=== PATIENT | male | born 1945 | race Caucasian/White ===

== ENCOUNTER → 2018-10-15 | Outpatient (CLI) | payer MEDICARE ==
[2018-10-15 10:07] LABS: Basophils % (A) 1 %; Eosinophils # (A) 0.1 k/uL (0-0.7); Eosinophils % (A) 2 %; HCT 45.5 % (39.0-53.0); HGB 14.6 gm/dL (13.0-17.5); Lymphocytes % (A) 24 %; MCH 30.8 pg (25.0-35.0); MCHC 32.2 g/dL (31.0-37.0); MCV 95.6 fL (80.0-100.0); Mean Platelet Volume 7.6; Monocytes # (A) 0.2 k/uL (0-1.0); Monocytes % (A) 5 %; Neutrophils # (A) 2.6 k/uL (1.3-7.7); Neutrophils % (A) 64 %; Platelet Count 188 k/uL (150-450); RBC 4.75 m/uL (4.30-5.90); RDW 13.7 % (11.5-15.5); WBC 4.1 k/uL (3.8-10.6)
[2018-10-15 16:36] LABS: Albumin 4.2 g/dL (3.80-4.90); Albumin/Globulin Ratio 2.8 (1.60-3.17); Anion Gap 5.5 mmol/L (4.00-12.00); Calcium 8.8 mg/dL (8.7-10.3); Carbon Dioxide 26.5 mmol/L (21.6-31.8); Globulin 1.5 g/dL (1.6-3.3); Potassium 4.4 mmol/L (3.5-5.5); Total Bilirubin 0.9 mg/dL (0.2-1.2); Total Protein 5.7 g/dL (6.2-8.2)
[2018-10-15 16:45] LABS: T4, Free (Free Thyroxine) 1.1 ng/dL (0.80-1.80)
== END ==
LOC: LABWHC1 09:02
PROVIDERS: ATTEND Family Medicine
DX: I10 Essential (primary) hypertension (principal); E78.5 Hyperlipidemia, unspecified; H53.2 Diplopia; R55 Syncope and collapse
CPT/HCPCS: 36415; 80053; 80061; 84439; 84443; 85025; 85379

== ENCOUNTER → 2018-11-01 | Outpatient (CLI) | payer MEDICARE ==
--- NOTE | 2018-11-02 10:15 | US ---
EXAMINATION TYPE: US carotid duplex BILAT DATE OF EXAM: 11/01/2018 COMPARISON: US 2013 CLINICAL HISTORY: R55 syncope H53.2 Diplopia. Syncope, diplopia per order. Hyperlipidemia. EXAM MEASUREMENTS: RIGHT: Peak Systolic Velocity (PSV) cm/sec ----- Right CCA: 76.7 ----- Right ICA: 75.3 ----- Right ECA: 89.1 ICA/CCA ratio: 1.0 RIGHT: End Diastole cm/sec ----- Right CCA: 23.8 ----- Right ICA: 22.3 ----- Right ECA: 16.4 LEFT: Peak Systolic Velocity (PSV) cm/sec ----- Left CCA: 109.4 ----- Left ICA: 74.5 ----- Left ECA: 60.2 ICA/CCA ratio: 0.7 LEFT: End Diastole cm/sec ----- Left CCA: 24.8 ----- Left ICA: 17.2 ----- Left ECA: 10.6 VERTEBRALS (direction of flow): Right Vertebral: Antegrade Left Vertebral: Antegrade Rhythm: Arrhythmia Minimal plaque seen bilateral bifurcations. No elevated velocities obtained. No significant stenosis seen. Arrhythmia. IMPRESSION: 1. Atheromatous plaquing. No significant flow-limiting stenosis. Criteria for Assigning % of Stenosis / Diameter reduction (Estimation based on the indirect measurements of the internal carotid artery velocities (ICA PSV). 1. Normal (no stenosis)=ICA PSV < 125 cm/s: ratio < 2.0: ICA EDV<40 cm/s. 2. Less than 50% stenosis=ICA PSV < 125 cm/s: ratio < 2.0: ICA EDV<40 cm/s. 3. 50 to 69% stenosis=ICA PSV of 125 to 230 cm/s: ration 2.0 ? 4.0: ICA EDV 40-100 cm/s. 4. Greater than 70% stenosis to near occlusion= ICA PSV > 230 cm/s: ratio > 4.0: ICA EDV > 100 cm/s. 5. Near occlusion= ICA PSV velocities may be low or undetectable: variable ratio and ICA EDV. 6. Total occlusion=unable to detect flow.
== END | disposition home or self-care (01) ==
LOC: RADUSWWP 16:35
PROVIDERS: ATTEND Family Medicine
DX: I70.90 Unspecified atherosclerosis (principal)
CPT/HCPCS: 93880

== ENCOUNTER 2021-02-02 08:26 | Day surgery (SDC) | payer MEDICARE, OTHER ==
[2021-02-02 08:54] VITALS: RESP 16; TEMP 97.3
[2021-02-02] MEDS ORDERED: LACTATED RINGERS 1,000 ML IV ONE (09:04)
[2021-02-02] MEDS ORDERED: LIDOCAINE 1% (10MG/ML) FOR IV START INTRADERMA ONE (09:04)
[2021-02-02] MEDS ORDERED: GLYCOPYRROLATE 0.2 MG/ML 2 ML VIAL ONE (09:22)
[2021-02-02] MEDS ORDERED: PROPOFOL 10 MG/ML 20 ML VIAL IV ONE (09:22)
--- NOTE | 2021-02-02 09:26 | P.GSHP ---
History of Present Illness H&P Date: 02/02/21 Chief Complaint: Rectal bleeding Patient is here today for colonoscopy. Last colonoscopy 15 years ago or so. Over the last month has had 2 episodes of bright red blood per rectum. No abdominal pain. No rectal pain. No family history of colon cancer. Past Medical History Past Medical History: Hyperlipidemia History of Any Multi-Drug Resistant Organisms: None Reported Additional Past Surgical History / Comment(s): BILATERAL KNEE SCOPE. Past Anesthesia/Blood Transfusion Reactions: No Reported Reaction Additional Past Anesthesia/Blood Transfusion Reaction / Comment(s): HAS HAD NO GENERAL ANESTHESIA. Past Psychological History: No Psychological Hx Reported Smoking Status: Former smoker Past Alcohol Use History: Occasional Additional Past Alcohol Use History / Comment(s): QUIT 3O YRS, LESS THAN .5 PPD Past Drug Use History: None Reported Medications and Allergies Home Medications Medication Instructions Recorded Confirmed Type Ibuprofen [Advil] 200 - 400 mg PO Q6H PRN 01/28/21 02/02/21 History Simvastatin 40 mg PO QAM 01/28/21 02/02/21 History Allergies Allergy/AdvReac Type Severity Reaction Status Date / Time No Known Allergies Allergy Verified 02/02/21 08:49 Surgical - Exam Vital Signs Temp Pulse Resp BP Pulse Ox 97.3 F L 52 L 16 165/89 97 02/02/21 08:52 02/02/21 08:52 02/02/21 08:52 02/02/21 08:52 02/02/21 08:52 Physical exam: General: Well-developed, well-nourished HEENT: Normocephalic, sclerae nonicteric Abdomen: Nontender, nondistended Extremities: No edema Neuro: Alert and oriented Assessment and Plan (1) Rectal bleeding Narrative/Plan: Will proceed with colonoscopy Current Visit: Yes Status: Acute Code(s): K62.5 - HEMORRHAGE OF ANUS AND RECTUM SNOMED Code(s): 64108470
--- NOTE | 2021-02-02 10:05 | P.PCN ---
Date of Procedure: 02/02/21 Procedure(s) Performed: PREOPERATIVE DIAGNOSIS: Rectal bleeding POSTOPERATIVE DIAGNOSIS: Multiple polyps, sigmoid mass, diverticulosis PROCEDURE: Colonoscopy with snare polypectomy, biopsy, spot injection, clip placement ANESTHESIA: MAC SURGEON: Colby Galvez M.D. SPECIMENS: Polyps, mass ENDOSCOPIC PROCEDURE: The patient was placed on the endoscopy table in the left decubitus position. The Olympus colonoscope was inserted into the anus and passed under direct visualization to the base of the cecum. The appendiceal orifice was visualized. From that point the scope was slowly withdrawn inspecting all surfaces carefully. There were no neoplastic inflammatory or polypoid lesions throughout the cecum. In the ascending colon a pedunculated polyp was removed using the snare with cautery technique. At the polypectomy site there was a small amount of bleeding seen. A clip was used to control this bleeding. No further bleeding was seen. In the transverse colon 2 polyps are seen removed using the snare with cautery technique. In the descending colon 2 polyps are seen and removed using the snare with cautery technique. In the sigmoid colon between 30 and 35 cm there was a neoplastic mass that was friable. This involved 50% of the circumference. This was not obstructing. Multiple biopsies were taken. Spot injection took place proximal and distal to the mass. In the rectum another 1.5-2 cm evacuated polyp was removed using the snare with cautery technique. The remainder of the rectum appeared normal. The patient had mild diverticulosis scattered throughout the colon. Digital rectal examination was normal. The patient was taken to the recovery room in stable condition per anesthesia guidelines. RECOMMENDATIONS: Await biopsy results. CT abdomen and pelvis. Follow-up office 1 week.
[2021-02-02 10:23] VITALS: BP 122/84; PULSE 57
== END 2021-02-02 10:54 | disposition home or self-care (01) ==
LOC: ORWHC2ENDO 08:26
PROVIDERS: ATTEND Surgery
DX: D12.2 Benign neoplasm of ascending colon (principal); D12.3 Benign neoplasm of transverse colon; D12.4 Benign neoplasm of descending colon; D12.5 Benign neoplasm of sigmoid colon; E78.5 Hyperlipidemia, unspecified; Z79.1 Long term (current) use of non-steroidal anti-inflammatories (NSAID); Z87.891 Personal history of nicotine dependence
CPT/HCPCS: 45382; 45380; 45381; 45385; 88305; J2704

== ENCOUNTER → 2021-02-10 | Outpatient (CLI) | payer MEDICARE, OTHER ==
[2021-02-10 14:59] LABS: African American GFR (CKD) >90 (>60 ml/min/1.73 sqM); Blood Urea Nitrogen 15 mg/dL (9-20); Non-African American GFR(CKD) 80 (>60 ml/min/1.73 sqM)
[2021-02-10 16:11] LABS: HCT 44.2 % (39.0-53.0); HGB 15.1 gm/dL (13.0-17.5); MCH 32.9 pg (25.0-35.0); MCHC 34.2 g/dL (31.0-37.0); MCV 96.2 fL (80.0-100.0); Mean Platelet Volume 7.9; Platelet Count 180 k/uL (150-450); RBC 4.59 m/uL (4.30-5.90); RDW 14.1 % (11.5-15.5); WBC 6.4 k/uL (3.8-10.6)
--- NOTE | 2021-02-10 16:22 | CT ---
EXAMINATION TYPE: CT abdomen pelvis w con DATE OF EXAM: 02/10/2021 COMPARISON: 03/12/2013 INDICATION: polys, colon mass DLP: 924.3 mGycm, Automated exposure control for dose reduction was used. CONTRAST: 100 mL of Isovue 300. Study performed with Oral Contrast TECHNIQUE: Axial images were obtained from above the diaphragm to the pubic rami in the axial plane a t 5 mm thick sections. Reconstructed images are reviewed on the computer in the coronal plane. FINDINGS: Limited CT sections are obtained the lung bases. The lung bases are clear. CT ABDOMEN: Liver: Normal Spleen: Normal Pancreas: Normal Adrenal glands: The adrenal glands are normal. Gallbladder: Normal Kidneys: No masses are evident. No hydronephrosis is present. No cysts are present. There is calci fication without obstruction at the inferior pole right kidney. In the inferior pole right renal cyst is present measuring 1.7 cm and 15 Hounsfield units. Aorta: Normal Inferior vena cava: Normal. CT PELVIS: Fecal debris is within the colon. There is thickening of the proximal sigmoid colon. Underlying neopl asm is not excluded at that level. There may be a radiopaque foreign body within the proximal hepatic flexure. Linear opacity is present. Small bowel loops appear unremarkable. There are loops of bowel which are incompletely distended or lack oral contrast limiting their evaluation. Appendix: Normal as visualized. Urinary bladder: Normal. Genitourinary structures: Prostate is prominent. Osseous structures: No suspicious lytic or sclerotic lesions. IMPRESSIONS: 1. Thickening of the proximal sigmoid colon. Additional workup for neoplasm is recommended. 2. Fecal debris within the colon. Polyps may not be visualized on this noncontrast filled colon CT st [facility]. 3. Possible radiopaque foreign body proximal hepatic flexure. 4. Right renal cyst and nonobstructing renal stone
[2021-02-10 16:42] LABS: ALT 14 U/L (4-49); AST 27 U/L (17-59); African American GFR (CKD) >90 (>60 ml/min/1.73 sqM); Albumin 4.3 g/dL (3.5-5.0); Alkaline Phosphatase 81 U/L (38-126); Anion Gap 9 mmol/L; Blood Urea Nitrogen 15 mg/dL (9-20); Calcium 9.4 mg/dL (8.4-10.2); Carbon Dioxide 25 mmol/L (22-30); Chloride 103 mmol/L (98-107); Glucose 85 mg/dL (74-99); Non-African American GFR(CKD) 82 (>60 ml/min/1.73 sqM); Potassium 4.1 mmol/L (3.5-5.1); Sodium 137 mmol/L (137-145); Total Protein 6.6 g/dL (6.3-8.2)
== END | disposition home or self-care (01) ==
LOC: RADCTMAIN 14:25
PROVIDERS: ATTEND Surgery
DX: N28.1 Cyst of kidney, acquired (principal); N20.0 Calculus of kidney; K63.9 Disease of intestine, unspecified
CPT/HCPCS: 80053; 82378; 82565; 84520; 85027; 74177; 36415; Q9967

== ENCOUNTER → 2021-02-22 | Outpatient (CLI) | payer MEDICARE, OTHER ==
[2021-02-22 14:07] LABS: HCT 45.9 % (39.0-53.0); HGB 15.6 gm/dL (13.0-17.5); MCH 32.5 pg (25.0-35.0); MCHC 33.9 g/dL (31.0-37.0); MCV 95.9 fL (80.0-100.0); Mean Platelet Volume 7.9; Platelet Count 180 k/uL (150-450); RBC 4.79 m/uL (4.30-5.90); RDW 13.2 % (11.5-15.5); WBC 6.2 k/uL (3.8-10.6)
[2021-02-22 14:24] LABS: Potassium 3.9 mmol/L (3.5-5.1)
== END | disposition home or self-care (01) ==
LOC: LABPAT 13:20
PROVIDERS: ATTEND Surgery
DX: Z01.812 Encounter for preprocedural laboratory examination (principal); Z01.810 Encounter for preprocedural cardiovascular examination; C18.9 Malignant neoplasm of colon, unspecified
CPT/HCPCS: 36415; 80051; 85027; 93005

== ENCOUNTER 2021-02-26 11:10 | Inpatient (IN) | payer MEDICARE, OTHER ==
[2021-02-22 11:57] VITALS: BMI 24.5
[~2021-02-26 11:10] MED LIST: ACETAMINOPHEN TAB 500 MG TAB PO PRN; ALVIMOPAN 12 MG CAPSULE PO PRN; DEXAMETHASONE SOD PHOSPHATE 4 MG/ML 1 ML VIAL IV ONE; HEPARIN SODIUM,PORCINE/PF 5,000 UNIT/0.5 ML SYRINGE SQ PRN; HYDROmorphone 0.5 MG/0.5 ML SYRINGE IVP PRN; LIDOCAINE 1% (10MG/ML) FOR IV START INTRADERMA PRN; MIDAZOLAM 2 MG/2 ML VIAL IV PRN; ONDANSETRON 4 MG/2 ML VIAL IVP ONE; fentaNYL (PF) 50 MCG/ML 2 ML AMP IVP PRN; metroNIDAZOLE-NS PMX 500 MG in SALINE 1 100ML.BAG IVPB PRN
[2021-02-26] MEDS: LACTATED RINGERS 1,000 ML IV SCH (12:33)
[2021-02-26 13:00] LABS: Glucose,Whole Blood 73 mg/dL (75-99)
[2021-02-26] MEDS ORDERED: MIDAZOLAM 2 MG/2 ML VIAL IV ONE (13:01)
[2021-02-26] MEDS ORDERED: PROPOFOL 10 MG/ML 20 ML VIAL IV ONE (13:15)
[2021-02-26] MEDS ORDERED: PHENYLEPHRINE-0.9% NACL SYG 1,000 MCG/10 ML SYRINGE ONE (13:15)
[2021-02-26] MEDS ORDERED: NEOSTIGMINE 1 MG/ML 10 ML VIAL ONE (13:15)
[2021-02-26] MEDS ORDERED: ePHEDrine SULFATE/0.9% NACL/PF 50 MG/5 ML SYRINGE IV ONE (13:15)
[2021-02-26] MEDS ORDERED: fentaNYL (PF) 50 MCG/ML 2 ML AMP ONE (13:15)
[2021-02-26] MEDS ORDERED: LIDOCAINE 1% INJ 10MG/ML (20 ML MDV) ONE (13:15)
[2021-02-26] MEDS ORDERED: GLYCOPYRROLATE 0.2 MG/ML 2 ML VIAL ONE (13:15)
[2021-02-26] MEDS ORDERED: SUCCINYLCHOLINE CHLORIDE 100 MG/5 ML SYR IV ONE (13:15)
[2021-02-26] MEDS ORDERED: ROCURONIUM 10 MG/ML (5 ML VIAL) IV ONE (13:15)
[2021-02-26] MEDS ORDERED: NALOXONE 0.4 MG/ML 1 ML VIAL IV PRN (13:17)
--- NOTE | 2021-02-26 13:17 | P.ANPRN ---
Procedure Note - Anesthesia - Epidural/Spinal Epidural Time Out Performed: Yes Date of Procedure: 02/26/21 Procedure Start Time: 13:00 Procedure Stop Time: 13:14 Location of Patient: PreOp Indication: Acute Post-Operative Pain Sedation Type: Sedate with meaningful contact maintained Preparation: Sterile Prep Position: Sitting Catheter: Indwelling Needle Guage: 18 Injectate: Test Dose Lidocaine1.5% w/1:200,000 epi (3cc without response) Blood Aspirated: No Pain Paresthesia on Injection Noted: No Events: Uneventful and Well Tolerated
[2021-02-26] MEDS ORDERED: LACTATED RINGERS 1,000 ML IV ONE (14:24)
[2021-02-26] MEDS: ROPIVACAINE 250 MG, fentaNYL (PF) 1,250 MCG in SODIUM CHLORIDE 0.9% 175 ML EPIDURAL PRN ×3 (15:41→16:50)
--- NOTE | 2021-02-26 15:59 | P.OP ---
Date of Procedure: 02/26/21 Procedure(s) Performed: PREOPERATIVE DIAGNOSIS: Sigmoid colon cancer POSTOPERATIVE DIAGNOSIS: Same PROCEDURE: Low anterior sigmoid resection SURGEON: Leonor EBL: 50 mL ANESTHESIA: General COMPLICATIONS: None OPERATIVE PROCEDURE: Patient place in the operative table in the supine position. The patient was placed under general anesthesia. The patient was then placed in lithotomy. The abdomen was prepped and draped in usual sterile fashion. A vertical incision was made extending from the supraumbilical location to the suprapubic location. The fascia was divided as well. The Bookwalter retractor was utilized. The sigmoid colon was fully mobilized by incising the white line of Toldt. The left and right ureters were both identified and preserved. The patient's tumor was present in the mid to proximal sigmoid colon. A small colotomy was created and the 29 EEA anvil was advanced into the lumen of the sigmoid colon and milked proximally. The bowel was then divided using a linear 75 stapler and the anvil was brought out adjacent to the staple line. A 3-0 silk pursestring suture was placed around the anvil at that location. The colotomy was closed at that time using a running locking 2-0 Vicryl suture. The mesentery was divided using the LigaSure device. Larger vessels were ligated using [address]section took place down to the proximal rectum where the tenia was noted to splay out. The proximal rectum was divided using the contour stapler. The specimen was passed off the field at that point. No signs of bleeding at either staple line was noted after irrigation. The tissue around the proximal staple line was dissected. The patient had 2 diverticulum adjacent to the edge of the stapler. These were carefully dissected and brought into the anvil and sutured there using an 3-0 silk stitch. The stapler was then inserted into the anus and brought up to the staple line. The obturator was brought out just anterior to the staple line. The 2 portions of the stapler were connected to one another and subsequently tightened and fired. The bowel was clamped proximal to the anastomosis. The rigid sigmoidoscope was utilized to fill the anastomotic site nicely with air. There was saline in the pelvis at this time. No evidence of leak was seen. The abdomen was irrigated with saline. The liver, stomach, visualized colon, and small bowel appeared normal. The midline fascia was then reapproximated using 2 separate double-stranded #1 PDS sutures. The subcutan eous tissues were closed using 3-0 Vicryl sutures. The skin was then closed using elpidio. Sterile dressings were then applied. DISPOSITION: Stable to recovery room
[2021-02-26] MEDS: D5-0.45% NACL WITH KCL 20MEQ/L 1,000 ML IV SCH (17:32)
[2021-02-26] MEDS: HEPARIN SODIUM,PORCINE/PF 5,000 UNIT/0.5 ML SYRINGE SQ SCH ×2 (17:33→22:33)
[2021-02-26] MEDS: FAMOTIDINE 20 MG/2 ML VIAL IV SCH (22:32)
[2021-02-26] MEDS: ALVIMOPAN 12 MG CAPSULE PO SCH (22:32)
[2021-02-27] MEDS: D5-0.45% NACL WITH KCL 20MEQ/L 1,000 ML IV SCH ×3 (01:40→15:44)
[2021-02-27] MEDS: LACTATED RINGERS 1,000 ML IV SCH (08:07)
[2021-02-27] MEDS: ALVIMOPAN 12 MG CAPSULE PO SCH ×2 (08:26→21:37)
[2021-02-27] MEDS: FAMOTIDINE 20 MG/2 ML VIAL IV SCH ×2 (08:26→21:37)
[2021-02-27] MEDS: HEPARIN SODIUM,PORCINE/PF 5,000 UNIT/0.5 ML SYRINGE SQ SCH ×3 (08:27→21:37)
--- NOTE | 2021-02-27 11:12 | P.CONS ---
History of Present Illness - Reason for Consult Consult date: 02/27/21 medical management Requesting physician: Colby Galvez - Chief Complaint COLON cancer post resection, BPH, hyperlipidemia and anemia - History of Present Illness HISTORY OF PRESENT ILLNESS 75-year-old male one of Dr. Linares patient with past medical history of hyperlipidemia and BPH who apparently developed to have mild rectal bleed was re ferred to have colonoscopy with Dr. egan procedure was done about 2 weeks agowith finding of 2 polyp initially were removed and found between 30 and 35 cm neoplastic mass was friable pathology came back positive 4 tubular adenoma and tubulovillous adenoma with focal high-grade dysplasia in the descending colon and in the sigmoid biopsy came back with invasive moderately differentiated adenocarcinoma. Patient was seen Dr. egan because an outpatient and schedule elective surgery for low anterior sigmoid resection, procedure was done successfully on 02/26/2021 patient has done very well was admitted to the floor has no NG tube still on pain management via PICTURE FRAMER pump was placed on DVT prophylaxis protocol his home meds were resumed patient was to be watch carefully hemodynamically. Patient is laying in bed comfortably this morning doing very well had a good night was able to sleep, no diet was order yet. REVIEW OF SYSTEMS Constitutional: No fever, no chills, no night sweats. No weight change. No weakness, fatigue or lethargy. No daytime sleepiness. EENT: No headache. No blurred vision or double vision, no loss of vision. No loss of Hearing, no ringing in the ears, no dizziness. No nasal drainage or congestion. No epistaxis. No sore throat. Lungs: No shortness of breath, cough, no sputum production. No wheezing. Cardiovascular: No chest pain, no lower extremity edema. No palpitations. No paroxysmal nocturnal dyspnea. No orthopnea. No lightheadedness or dizziness. No syncopal episodes. Abdominal: No abdominal pain. No nausea, vomiting. No diarrhea. No constipation. No bloody or tarry stools.. No loss of appetite. Genitourinary: No dysuria, increased frequency, urgency. No urinary retention. Musculoskeletal: No myalgias. No muscle weakness, no gait dysfunction, no frequent falls. No back pain. No neck pain. Integumentary: No wounds, no lesions. No rash or pruritus. No unusual bruising. No change in hair or nails. Neurologic: No aphasia. No facial droop. No change in mentation. No head injury. No headache. No paralysis. No paresthesia. Psychiatric: No depression. No anxiety. No mood swings. Endocrine: No abnormal blood sugars. No weight change. No excessive sweating or thirst. No cold intolerance. 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 FAMILY HISTORY mother dying her 92 from old age, father age 83 from atherosclerotic heart disease, patient had 3 brothers 2 of them passed 1 from colon cancer 1 from CAD and had a sister with either early age from motor vehicle accident. Patient does not have any children. PHYSICAL EXAMINATION Gen: This is well-developed 75-year-old laying in bed does not look in any respiratory distress. HEENT: Head is atraumatic, normocephalic. Pupils equal, round. Sclerae is anicteric. NECK: Supple. No JVD. No lymphadenopathy. No thyromegaly. LUNGS: Clear to auscultation. No wheezes or rhonchi. No intercostal retractions. HEART: Regular rate and rhythm. No murmur. ABDOMEN: Soft. incision in the midline looks fine with no bleeding no induration tenderness or redness no bowel sounds at this point. EXTREMITIES: No pedal edema. No calf tenderness. NEUROLOGICAL: Patient is awake, alert and oriented x3. Cranial nerves 2 through 12 are grossly intact. ASSESSMENT AND PLAN 1. moderately differentiated adenocarcinoma of the colon post low anterior resection of the colon, doing well resume home meds, continue to watch patient hemodynamic status carefully. Patient would have incentive spirometry knee-high LILI hose and DVT prophylaxis. 2 hyperlipidemia: Patient is on simvastatin Will resume medication. 3 BPH: Watch for any urinary retention still have Abrams catheter while he has PICTURE FRAMER pump at this point with try to remove his catheter as soon as possible to reduce side effects infection and retention. 4 mild hypoglycemia: Patient will continue to have D5 in his IV fluid continue supportive care no medication or management needed. 5 DVT prophylaxis: Patient will beon heparin subcutaneous. 6 GI prophylaxis: Continue patient on Pepcid. CODE STATUS: Full code. Dr. Galvez thank you very much for the consult if I can be any further help to please let me know. Past Medical History Past Medical History: Cancer, Hyperlipidemia Additional Past Medical History / Comment(s): Colon cancer History of Any Multi-Drug Resistant Organisms: None Reported Past Surgical History: Orthopedic Surgery Additional Past Surgical History / Comment(s): Bilat knee scopes, 1995 est. Colonoscopy Past Anesthesia/Blood Transfusion Reactions: No Reported Reaction Additional Past Anesthesia/Blood Transfusion Reaction / Comm: HAS HAD NO GENERAL ANESTHESIA. Past Psychological History: No Psychological Hx Reported Smoking Status: Former smoker Past Alcohol Use History: Occasional Additional Past Alcohol Use History / Comment(s): QUIT 1990, smoked less than 1/2 PPD Past Drug Use History: None Reported - Past Family History Mother Family Medical History: No Reported History Medications and Allergies Home Medications Medication Instructions Recorded Confirmed Type Ibuprofen [Advil] 200 - 400 mg PO Q6H PRN 01/28/21 02/22/21 History Simvastatin 40 mg PO QAM 01/28/21 02/26/21 History Allergies Allergy/AdvReac Type Severity Reaction Status Date / Time No Known Allergies Allergy Verified 02/22/21 11:28 Physical Exam Vitals: Vital Signs Temp Pulse Pulse Resp BP BP Pulse Ox 02/27/21 07:16 97.9 F 67 18 162/76 97 02/27/21 01:13 98.7 F 63 17 134/79 93 L 02/26/21 19:43 98.4 F 67 15 155/83 94 L 02/26/21 19:40 67 15 02/26/21 17:12 97.8 F 61 18 162/87 95 02/26/21 16:50 49 L 16 159/82 95 02/26/21 16:35 52 L 16 174/91 96 02/26/21 16:20 53 L 16 163/84 96 02/26/21 16:10 52 L 16 167/81 96 02/26/21 15:55 55 L 16 180/85 100 02/26/21 15:41 96.8 F L 60 14 170/97 100 02/26/21 13:14 55 L 16 137/72 98 02/26/21 12:34 97.2 F L 54 L 16 141/85 96 Intake and Output 02/26/21 02/27/21 02/27/21 22:59 06:59 14:59 Intake Total 126 Output Total 300 700 Balance -174 -700 Intake: IV 126 Output: Urine 250 700 Estimated Blood Loss 50 Other: Voiding Method Indwelling Catheter # Bowel Movements 0 Weight 88 kg Results Labs: Abnormal Lab Results - Last 24 Hours (Table) 02/26/21 Range/Units 12:48 POC Glucose (mg/dL) 73 L (75-99) mg/dL
[2021-02-27] MEDS: ROPIVACAINE 250 MG, fentaNYL (PF) 1,250 MCG in SODIUM CHLORIDE 0.9% 175 ML EPIDURAL PRN (11:25)
--- NOTE | 2021-02-27 11:47 | P.PN ---
Progress Note - Text Progress Note Date: 02/27/21 Patient status post sigmoid colectomy. He is doing fairly well. On exam vital signs are stable. Abdomen soft her incisions clean dry tach. Status post sigmoid clipped. Patient to receive supportive care.
[2021-02-27 12:00] LABS: Basophils % (A) 0 %; Eosinophils % (A) 0 %; HCT 41.1 % (39.0-53.0); HGB 13.6 gm/dL (13.0-17.5); Lymphocytes # (A) 0.9 k/uL (1.0-4.8); Lymphocytes % (A) 9 %; MCH 31.6 pg (25.0-35.0); MCHC 33.2 g/dL (31.0-37.0); MCV 95.3 fL (80.0-100.0); Mean Platelet Volume 8.6; Monocytes # (A) 0.7 k/uL (0-1.0); Monocytes % (A) 8 %; Neutrophils # (A) 7.4 k/uL (1.3-7.7); Neutrophils % (A) 79 %; Platelet Count 149 k/uL (150-450); RBC 4.31 m/uL (4.30-5.90); RDW 13.5 % (11.5-15.5); WBC 9.3 k/uL (3.8-10.6)
[2021-02-27 12:15] LABS: African American GFR (CKD) >90 (>60 ml/min/1.73 sqM); Anion Gap 6 mmol/L; Blood Urea Nitrogen 14 mg/dL (9-20); Calcium 8.4 mg/dL (8.4-10.2); Carbon Dioxide 24 mmol/L (22-30); Chloride 105 mmol/L (98-107); Glucose 120 mg/dL (74-99); Non-African American GFR(CKD) 82 (>60 ml/min/1.73 sqM); Potassium 4.4 mmol/L (3.5-5.1); Sodium 135 mmol/L (137-145)
[2021-02-27] MEDS ORDERED: KETOROLAC 15 MG/ML 1 ML VIAL IVP PRN (13:00)
--- NOTE | 2021-02-27 21:12 | P.PN ---
Progress Note - Text 02/27/21 1059 75-year-old male status post low anterior resection by Dr. Galvez. Patient has an epidural catheter for postop pain control with the solution running at 10 mL an hour with a VAS of 0 at rest. Patient has been able to ambulate with no motor or sensory deficits noted plan to continue epidural infusion
[2021-02-27] MEDS: ACETAMINOPHEN TAB 325 MG TAB PO PRN (21:37)
[2021-02-28] MEDS: D5-0.45% NACL WITH KCL 20MEQ/L 1,000 ML IV SCH ×3 (02:04→17:03)
[2021-02-28] MEDS: ACETAMINOPHEN TAB 325 MG TAB PO PRN (02:05)
[2021-02-28] MEDS: ROPIVACAINE 250 MG, fentaNYL (PF) 1,250 MCG in SODIUM CHLORIDE 0.9% 175 ML EPIDURAL PRN (03:20)
[2021-02-28] MEDS: FAMOTIDINE 20 MG/2 ML VIAL IV SCH (08:54)
[2021-02-28] MEDS: HEPARIN SODIUM,PORCINE/PF 5,000 UNIT/0.5 ML SYRINGE SQ SCH ×3 (08:54→20:34)
[2021-02-28] MEDS: ONDANSETRON 4 MG/2 ML VIAL IVP PRN (08:54)
[2021-02-28] MEDS: ALVIMOPAN 12 MG CAPSULE PO SCH ×2 (08:54→20:34)
[2021-02-28] MEDS: LACTATED RINGERS 1,000 ML IV SCH (08:55)
--- NOTE | 2021-02-28 12:02 | P.PN ---
Progress Note - Text Progress Note Date: 02/28/21 Patient's feeling better. On exam vital signs are stable. Abdomen soft incision clean and intact. Status post low anterior section. Patient will continue supportive care.
[2021-02-28 12:09] LABS: HCT 42.2 % (39.6-50.0); HGB 13.2 g/dL (13.0-17.0); MCH 30.4 pg (27.0-32.0); MCHC 31.3 g/dL (32.0-37.0); MCV 97.2 fL (80.0-97.0); Platelet Count 134 X 10*3/uL (140-440); RBC 4.34 X 10*6/uL (4.40-5.60); WBC 8.14 X 10*3/uL (4.50-10.00)
--- NOTE | 2021-02-28 12:09 | P.PN ---
Subjective Progress Note Date: 02/28/21 Principal diagnosis: COLON cancer post resection, BPH, hyperlipidemia and anemia HISTORY OF PRESENT ILLNESS 75-year-old male one of Dr. Linares patient with past medical history of hyperlipidemia and BPH who apparently developed to have mild rectal bleed was referred to have colonoscopy with Dr. egan procedure was done about 2 weeks agowith finding of 2 polyp initially were removed and found between 30 and 35 cm neoplastic mass was friable pathology came back positive 4 tubular adenoma and tubulovillous adenoma with focal high-grade dysplasia in the descending colon and in the sigmoid biopsy came back with invasive moderately differentiated adenocarcinoma. Patient was seen Dr. egan because an outpatient and schedule elective surgery for low anterior sigmoid resection, procedure was done successfully on 02/26/2021 patient has done very well was admitted to the floor has no NG tube still on pain management via COLLECTIONS CURATOR pump was placed on DVT prophylaxis protocol his home meds were resumed patient was to be watch carefully hemodynamically. Patient is laying in bed comfortably this morning doing very well had a good night was able to sleep, no diet was order yet. 02/28: Patient is doing much better still have epidural COLLECTIONS CURATOR still have a Abrams catheter in, has been passing gas developed to have mild nausea this morning apparently patient still on a clear liquid diet no salt diet this point, he is ambulating with help specially with his epidural and Abrams catheter at this point. No sign of bleed and stable hemodynamically. REVIEW OF SYSTEMS Constitutional: No fever, no chills, no night sweats. No weight change. No weakness, fatigue or lethargy. No daytime sleepiness. EENT: No headache. No blurred vision or double vision, no loss of vision. No loss of Hearing, no ringing in the ears, no dizziness. No nasal drainage or congestion. No epistaxis. No sore throat. Lungs: No shortness of breath, cough, no sputum production. No wheezing. Cardiovascular: No chest pain, no lower extremity edema. No palpitations. No paroxysmal nocturnal dyspnea. No orthopnea. No lightheadedness or dizziness. No syncopal episodes. Abdominal: No abdominal pain. No nausea, vomiting. No diarrhea. No constip ation. No bloody or tarry stools.. No loss of appetite. Genitourinary: No dysuria, increased frequency, urgency. No urinary retention. Musculoskeletal: No myalgias. No muscle weakness, no gait dysfunction, no frequent falls. No back pain. No neck pain. Integumentary: No wounds, no lesions. No rash or pruritus. No unusual bruising. No change in hair or nails. Neurologic: No aphasia. No facial droop. No change in mentation. No head injury. No headache. No paralysis. No paresthesia. Psychiatric: No depression. No anxiety. No mood swings. Endocrine: No abnormal blood sugars. No weight change. No excessive sweating or thirst. No cold intolerance. PHYSICAL EXAMINATION Gen: This is well-developed 75-year-old laying in bed does not look in any respiratory distress. HEENT: Head is atraumatic, normocephalic. Pupils equal, round. Sclerae is anicteric. NECK: Supple. No JVD. No lymphadenopathy. No thyromegaly. LUNGS: Clear to auscultation. No wheezes or rhonchi. No intercostal retractions. HEART: Regular rate and rhythm. No murmur. ABDOMEN: Soft. incision in the midline looks fine with no bleeding no induration tenderness or redness no bowel sounds at this point. EXTREMITIES: No pedal edema. No calf tenderness. NEUROLOGICAL: Patient is awake, alert and oriented x3. Cranial nerves 2 through 12 are grossly intact. ASSESSMENT AND PLAN 1. moderately differentiated adenocarcinoma of the colon post low anterior res ection of the colon, doing very well continue pain management and increase diet gradually till he has a full bowel movement. Continue hydration and continue to watch for any urinary retention while his son epidural COLLECTIONS CURATOR. 2 hyperlipidemia: Patient is on simvastatin Will resume medication. 3 BPH: Watch for any urinary retention still have Abrams catheter while he has COLLECTIONS CURATOR pump at this point with try to remove his catheter as soon as possible to reduce side effects infection and retention. 4 mild hypoglycemia: Patient will continue to have D5 in his IV fluid continue supportive care no medication or management needed. 5 DVT prophylaxis: Patient will beon heparin subcutaneous. 6 GI prophylaxis: Continue patient on Pepcid. Objective - Vital Signs Vital signs: Vital Signs Temp 97.7 F 02/28/21 07:58 Pulse 53 L 02/28/21 07:58 Resp 17 02/28/21 07:58 BP 128/71 02/28/21 07:58 Pulse Ox 92 L 02/28/21 07:58 Intake & Output 02/27/21 02/28/21 02/28/21 18:59 06:59 18:59 Intake Total 28.333 159.167 Output Total 1400 1999 Balance -1371.198 -7806.283 Intake: Intake, IV Titration 28.333 159.167 Amount Ropivacaine 250 mg 28.333 159.167 fentaNYL (PF) 1,250 mcg In Sodium Chloride 0.9% 175 ml @ Per Protocol EPIDURAL .Q0M PRN Rx#: [id number] Output: Urine 1400 1999 Other: Voiding Method Indwelling Catheter Indwelling Catheter Indwelling Catheter - Labs CBC & Chem 7: 02/27/21 11:08 02/27/21 11:08 Labs: Abnormal Lab Results - Last 24 Hours (Table) 02/27/21 Range/Units 11:08 Sodium 135 L (137-145) mmol/L Glucose 120 H (74-99) mg/dL
[2021-02-28 12:18] LABS: African American GFR (CKD) 95.1 (60.0-200.0); Albumin 3.5 g/dL (3.80-4.90); Albumin/Globulin Ratio 1.94 (1.60-3.17); Anion Gap 6.9 mmol/L (4.00-12.00); BUN/Creat Ratio 11.11 Ratio (12.00-20.00); Calcium 8.2 mg/dL (8.7-10.3); Carbon Dioxide 24.1 mmol/L (21.6-31.8); Globulin 1.8 g/dL (1.6-3.3); Non-African American GFR(CKD) 82.1 (60.0-200.0); Total Bilirubin 1.5 mg/dL (0.2-1.2); Total Protein 5.3 g/dL (6.2-8.2)
[2021-02-28] MEDS: METOCLOPRAMIDE 5 MG/ML 2 ML VIAL IVP PRN (13:33)
[2021-02-28] MEDS: FAMOTIDINE 20 MG TAB PO SCH (20:34)
--- NOTE | 2021-02-28 20:50 | P.PN ---
Progress Note - Text 02/28/212030 75-year-old male status post low anterior resection. Patient has an epidural catheter for postop pain control with the solution running at 8 mL an hour. Patient had an episode of nausea and vomiting this morning, as a result the rate was decreased from 10-8 mL an hour. Patient has a VAS of 0 at rest and has been ambulating. Plan to DC the epidural in a.m.
[2021-03-01] MEDS: D5-0.45% NACL WITH KCL 20MEQ/L 1,000 ML IV SCH ×4 (00:30→22:41)
[2021-03-01] MEDS: METOCLOPRAMIDE 5 MG/ML 2 ML VIAL IVP PRN (02:52)
[2021-03-01] MEDS: LACTATED RINGERS 1,000 ML IV SCH (05:11)
[2021-03-01] MEDS: ROPIVACAINE 250 MG, fentaNYL (PF) 1,250 MCG in SODIUM CHLORIDE 0.9% 175 ML EPIDURAL PRN (06:08)
[2021-03-01] MEDS: ONDANSETRON 4 MG/2 ML VIAL IVP PRN (06:34)
[2021-03-01] MEDS: HEPARIN SODIUM,PORCINE/PF 5,000 UNIT/0.5 ML SYRINGE SQ SCH (07:12)
[2021-03-01] MEDS ORDERED: HYDROcodone/APAP 5-325MG 1 EACH TAB PO PRN (07:58)
[2021-03-01] MEDS ORDERED: ACETAMINOPHEN TAB 325 MG TAB PO PRN (07:58)
[2021-03-01] MEDS: FAMOTIDINE 20 MG TAB PO SCH ×2 (08:25→21:19)
[2021-03-01] MEDS: ALPRAZolam 0.25 MG TAB PO PRN ×2 (09:14→21:19)
--- NOTE | 2021-03-01 11:41 | P.PN ---
Subjective Progress Note Date: 03/01/21 Principal diagnosis: Colon cancer Patient apparently was confused over the weekend and very anxious this morning and last night. He did have an episode of nausea with 1 episode of vomiting yesterday. Denies nausea at this time. Says his pain is minimal. He has had 2 bowel movements. He would like more to eat. He is on clear liquids. White blood cell count is normal. Objective - Vital Signs Vital signs: Vital Signs Temp 97.9 F 03/01/21 08:00 Pulse 52 L 03/01/21 08:00 Resp 13 03/01/21 08:00 BP 158/80 03/01/21 08:00 Pulse Ox 97 03/01/21 08:00 Intake & Output 02/28/21 03/01/21 03/01/21 18:59 06:59 18:59 Intake Total 124.300 102.667 Output Total 1700 Balance -1575.700 102.667 Intake: Intake, IV Titration 124.300 102.667 Amount Ropivacaine 250 mg 124.300 102.667 fentaNYL (PF) 1,250 mcg In Sodium Chloride 0.9% 175 ml @ Per Protocol EPIDURAL .Q0M PRN Rx#: [id number] Output: Urine 1700 Other: Voiding Method Indwelling Catheter Indwelling Catheter # Voids 1,800 - Exam Abdomen: Soft, minimally distended, minimal tenderness, dressing clean and dry - Labs CBC & Chem 7: 02/28/21 04:43 02/28/21 04:43 Labs: Abnormal Lab Results - Last 24 Hours (Table) 02/28/21 02/28/21 Range/Units 04:43 04:43 RBC 4.34 L (4.40-5.60) X 10*6/uL MCV 97.2 H (80.0-97.0) fL MCHC 31.3 L (32.0-37.0) g/dL Plt Count 134 L (140-440) X 10*3/uL Plt Count Comment DECREASED A BUN/Creatinine Ratio 11.11 L (12.00-20.00) Ratio Glucose 121 H (70-110) mg/dL Calcium 8.2 L (8.7-10.3) mg/dL Total Bilirubin 1.5 H (0.2-1.2) mg/dL Total Protein 5.3 L (6.2-8.2) g/dL Albumin 3.50 L (3.80-4.90) g/dL Assessment and Plan (1) Cancer of sigmoid colon Narrative/Plan: Overall patient seems to be doing fairly well. Will increase diet. Patient is very anxious to go home but I think it is related to his anxiety. He is slightly distended and had vomiting yesterday. Would like to see him tolerate solid foods before discharge. Informed patient and that tentatively we co uld consider discharge tomorrow if doing well. Thrombocytopenia noted. Not far-off his baseline. Agree with holding heparin. We'll monitor closely. Current Visit: Yes Status: Acute Code(s): C18.7 - MALIGNANT NEOPLASM OF SIGMOID COLON SNOMED Code(s): 018518547
[2021-03-01] MEDS: KETOROLAC 15 MG/ML 1 ML VIAL IVP SCH ×2 (12:07→17:32)
--- NOTE | 2021-03-01 12:51 | P.PN ---
Subjective Progress Note Date: 03/01/21 Principal diagnosis: COLON cancer post resection, BPH, hyperlipidemia and anemia, PADDY syndrome. HISTORY OF PRESENT ILLNESS 75-year-old male one of Dr. Linares patient with past medical history of hyperlipidemia and BPH who apparently developed to have mild rectal bleed was referred to have colonoscopy with Dr. egan procedure was done about 2 weeks agowith finding of 2 polyp initially were removed and found between 30 and 35 cm neoplastic mass was friable pathology came back positive 4 tubular adenoma and tubulovillous adenoma with focal high-grade dysplasia in the descending colon and in the sigmoid biopsy came back with invasive moderately differentiated adenocarcinoma. Patient was seen Dr. egan because an outpatient and schedule elective surgery for low anterior sigmoid resection, procedure was done successfully on 02/26/2021 patient has done very well was admitted to the floor has no NG tube still on pain management via COUNTER INTELLIGENCE pump was placed on DVT prophylaxis protocol his home meds were resumed patient was to be watch carefully hemodynamically. Patient is laying in bed comfortably this morning doing very well had a good night was able to sleep, no diet was order yet. 02/28: Patient is doing much better still have epidural COUNTER INTELLIGENCE still have a Abrams catheter in, has been passing gas developed to have mild nausea this morning ap parently patient still on a clear liquid diet no salt diet this point, he is ambulating with help specially with his epidural and Abrams catheter at this point. No sign of bleed and stable hemodynamically. 03/01: Patient is doing very well his epidural was stopped, he is passing gas he still have Abrams catheter which will be taking out today. Surprisingly his platelet count if dropped down significantly with his heparin subcutaneous this is probably mild degree of PADDY syndrome, patient be taking off all heparin flush and subcutaneous at this point will repeat CBC again tomorrow. REVIEW OF SYSTEMS Constitutional: No fever, no chills, no night sweats. No weight change. No weakness, fatigue or lethargy. No daytime sleepiness. EENT: No headache. No blurred vision or double vision, no loss of vision. No loss of Hearing, no ringing in the ears, no dizziness. No nasal drainage or congestion. No epistaxis. No sore throat. Lungs: No shortness of breath, cough, no sputum production. No wheezing. Cardiovascular: No chest pain, no lower extremity edema. No palpitations. No paroxysmal nocturnal dyspnea. No orthopnea. No lightheadedness or dizziness. No syncopal episodes. Abdominal: No abdominal pain. No nausea, vomiting. No diarrhea. No constipat ion. No bloody or tarry stools.. No loss of appetite. Genitourinary: No dysuria, increased frequency, urgency. No urinary retention. Musculoskeletal: No myalgias. No muscle weakness, no gait dysfunction, no frequent falls. No back pain. No neck pain. Integumentary: No wounds, no lesions. No rash or pruritus. No unusual bruising. No change in hair or nails. Neurologic: No aphasia. No facial droop. No change in mentation. No head injury. No headache. No paralysis. No paresthesia. Psychiatric: No depression. No anxiety. No mood swings. Endocrine: No abnormal blood sugars. No weight change. No excessive sweating or thirst. No cold intolerance. PHYSICAL EXAMINATION Gen: This is well-developed 75-year-old laying in bed does not look in any respiratory distress. HEENT: Head is atraumatic, normocephalic. Pupils equal, round. Sclerae is anicteric. NECK: Supple. No JVD. No lymphadenopathy. No thyromegaly. LUNGS: Clear to auscultation. No wheezes or rhonchi. No intercostal retractions. HEART: Regular rate and rhythm. No murmur. ABDOMEN: Soft. incision in the midline looks fine with no bleeding no induration tenderness or redness no bowel sounds at this point. EXTREMITIES: No pedal edema. No calf tenderness. NEUROLOGICAL: Patient is awake, alert and oriented x3. Cranial nerves 2 through 12 are grossly intact. ASSESSMENT AND PLAN 1. moderately differentiated adenocarcinoma of the colon post low anterior resection of the colon, doing very well his epidural COUNTER INTELLIGENCE will be stopped and patient will be on oral medication for pain management. 2 PADDY syndrome: Patient be taking off heparin completely repeat CBC tomorrow. 2 hyperlipidemia: Patient is on simvastatin Will resume medication. 3 BPH: Watch for any urinary retention Abrams catheter will be taking out the next few hours if is having any problem will started on Flomax. 4 mild hypoglycemia: Patient will continue to have D5 in his IV fluid continue supportive care no medication or management needed. 5 DVT prophylaxis: Knee-high LILI hose and mobilization. 6 GI prophylaxis: Continue patient on Pepcid. Objective - Vital Signs Vital signs: Vital Signs Temp 97.9 F 03/01/21 08:00 Pulse 52 L 03/01/21 08:00 Resp 13 03/01/21 08:00 BP 158/80 03/01/21 08:00 Pulse Ox 97 03/01/21 08:00 Intake & Output 02/28/21 03/01/21 03/01/21 18:59 06:59 18:59 Intake Total 124.300 102.667 Output Total 1700 700 Balance -1575.700 102.667 -700 Intake: Intake, IV Titration 124.300 102.667 Amount Ropivacaine 250 mg 124.300 102.667 fentaNYL (PF) 1,250 mcg In Sodium Chloride 0.9% 175 ml @ Per Protocol EPIDURAL .Q0M PRN Rx#: [id number] Output: Urine 1700 700 Uretheral (Abrams) 700 Other: Voiding Method Indwelling Catheter Indwelling Catheter # Voids 1,800 - Labs CBC & Chem 7: 02/28/21 04:43 02/28/21 04:43
[2021-03-02] MEDS: KETOROLAC 15 MG/ML 1 ML VIAL IVP SCH ×3 (02:37→11:46)
[2021-03-02] MEDS: D5-0.45% NACL WITH KCL 20MEQ/L 1,000 ML IV SCH (05:54)
[2021-03-02] MEDS: FAMOTIDINE 20 MG TAB PO SCH (08:12)
[2021-03-02] MEDS: LACTATED RINGERS 1,000 ML IV SCH (11:23)
[2021-03-02 11:42] LABS: HGB 14.2 g/dL (13.0-17.0); MCH 30.9 pg (27.0-32.0); MCHC 32.3 g/dL (32.0-37.0); MCV 95.7 fL (80.0-97.0); Mean Platelet Volume 11.2 fL (9.5-12.2); Platelet Count 183 X 10*3/uL (140-440); RDW 13.4 % (11.5-14.5); WBC 6.34 X 10*3/uL (4.50-10.00)
--- NOTE | 2021-03-02 13:41 | P.PN ---
Subjective Progress Note Date: 03/02/21 HISTORY OF PRESENT ILLNESS 75-year-old male one of Dr. Linares patient with past medical history of hyperlipidemia and BPH who apparently developed to have mild rectal bleed was referred to have colonoscopy with Dr. egan procedure was done about 2 weeks agowith finding of 2 polyp initially were removed and found between 30 and 35 cm neoplastic mass was friable pathology came back positive 4 tubular adenoma and tubulovillous adenoma with focal high-grade dysplasia in the descending colon and in the sigmoid biopsy came back with invasive moderately differentiated adenocarcinoma. Patient was seen Dr. egan because an outpatient and schedule elective surgery for low anterior sigmoid resection, procedure was done successfully on 02/26/2021 patient has done very well was admitted to the floor has no NG tube still on pain management via ALUMINUM CAN COLLECTOR pump was placed on DVT prophyl axis protocol his home meds were resumed patient was to be watch carefully hemodynamically. Patient is laying in bed comfortably this morning doing very well had a good night was able to sleep, no diet was order yet. 02/28: Patient is doing much better still have epidural ALUMINUM CAN COLLECTOR still have a Abrams catheter in, has been passing gas developed to have mild nausea this morning apparently patient still on a clear liquid diet no salt diet this point, he is ambulating with help specially with his epidural and Abrams catheter at this point. No sign of bleed and stable hemodynamically. 03/01: Patient is doing very well his epidural was stopped, he is passing gas he still have Abrams catheter which will be taking out today. Surprisingly his platelet count if dropped down significantly with his heparin subcutaneous this is probably mild degree of PADDY syndrome, patient be taking off all heparin flush and subcutaneous at this point will repeat CBC again tomorrow. 03/02: Patient has been tolerating a low fiber diet without nausea or vomiting. Abdominal pain is well controlled. He has been afebrile, heart rate 59, blood pressure 160/83, pulse ox 96% on room air. Repeat blood work reveals normal CBC. Chemistry panel results are pending at 1:40 PM. Patient states that he has been ambulating, no lightheadedness or dizziness. No chest pain. Patient is anticipating discharge home today. Medication reconciliation has been reviewed. REVIEW OF SYSTEMS Constitutional: No fever, no chills, no night sweats. No weight change. No weakness, fatigue or lethargy. No daytime sleepiness. EENT: No headache. No blurred vision or double vision, no loss of vision. No l oss of Hearing, no ringing in the ears, no dizziness. No nasal drainage or congestion. No epistaxis. No sore throat. Lungs: No shortness of breath, cough, no sputum production. No wheezing. Cardiovascular: No chest pain, no lower extremity edema. No palpitations. No paroxysmal nocturnal dyspnea. No orthopnea. No lightheadedness or dizziness. No syncopal episodes. Abdominal: No abdominal pain. No nausea, vomiting. No diarrhea. No constipation. No bloody or tarry stools.. No loss of appetite. Genitourinary: No dysuria, increased frequency, urgency. No urinary retention. Musculoskeletal: No myalgias. No muscle weakness, no gait dysfunction, no frequent falls. No back pain. No neck pain. Integumentary: No wounds, no lesions. No rash or pruritus. No unusual bruising. No change in hair or nails. Neurologic: No aphasia. No facial droop. No change in mentation. No head injury. No headache. No paralysis. No paresthesia. Psychiatric: No depression. No anxiety. No mood swings. Endocrine: No abnormal blood sugars. No weight change. No excessive sweating or thirst. No cold intolerance. PHYSICAL EXAMINATION Gen: This is well-developed 75-year-old laying in bed does not look in any respiratory distress. Patient's is at bedside. HEENT: Head is atraumatic, normocephalic. Pupils equal, round. Sclerae is anicteric. NECK: Supple. No JVD. No lymphadenopathy. No thyromegaly. LUNGS: Clear to auscultation. No wheezes or rhonchi. No intercostal retractions. HEART: Regular rate and rhythm. No murmur. ABDOMEN: Soft. incision in the midline looks fine with no bleeding no induration no tenderness or redness no bowel sounds at this point. EXTREMITIES: No pedal edema. No calf tenderness. NEUROLOGICAL: Patient is awake, alert and oriented x3. Cranial nerves 2 through 12 are grossly intact. ASSESSMENT AND PLAN 1. moderately differentiated adenocarcinoma of the colon post low anterior resection of the colon, doing very well his epidural ALUMINUM CAN COLLECTOR will be stopped and patient will be on oral medication for pain management. 2 PADDY syndrome. Tinea to hold heparin. 2 hyperlipidemia: Patient is on simvastatin Will resume medication. 3 BPH. She was able to void on his own. 4 mild hypoglycemia: Patient will continue to have D5 in his IV fluid continue supportive care no medication or management needed. 5 DVT prophylaxis: Knee-high LILI hose and mobilization. 6 GI prophylaxis: Continue patient on Pepcid. DISCHARGE PLAN Home Impression and plan of care have been directed as dictated by the signing physician. Yeimy Gilbert nurse practitioner acting as scribe for signing physician. Objective - Vital Signs Vital signs: Vital Signs Temp 97.9 F 03/02/21 07:59 Pulse 59 L 03/02/21 07:59 Resp 18 03/02/21 07:59 BP 168/83 03/02/21 07:59 Pulse Ox 96 03/02/21 07:59 Intake & Output 03/01/21 03/02/21 03/02/21 18:59 06:59 18:59 Output Total 700 Balance -700 Output: Urine 700 Uretheral (Abrams) 700 Other: # Voids 3 3 - Labs CBC & Chem 7: 03/02/21 07:05 02/28/21 04:43
--- NOTE | 2021-03-02 13:56 | P.DS ---
<Ashleigh Velazco - Last Filed: 03/02/21 13:54> Providers Expected date of discharge: 03/02/21 Hospital Course: Discharge diagnosis 1. Sigmoid colon cancer status post lower anterior sigmoid resection Hospital course This is a 75-year-old male who had outpatient colonoscopy that was positive for cancer of the sigmoid colon. Patient is status post lower anterior sigmoid resection. He tolerated surgery well. He is tolerating diet. He is having flatus. Denies any nausea or vomiting. He is up and ambulating. He is afebrile. His incision site is clean dry and intact. He is stable for discharge. Please refer to chart for any further details. Physician Promotions Specialist note has been reviewed by physician. Signing provider agrees with the documented findings, assessment, and plan of care. Patient Condition at Discharge: Stable Plan - Discharge Summary Discharge Rx Participant: No New Discharge Prescriptions: New Acetaminophen Tab [Tylenol] 650 mg PO Q4HR PRN tab PRN Reason: Fever and/ or Mild Pain HYDROcodone/APAP 5-325MG [[place] 5-325] 1 tab PO Q6HR PRN 3 Days #10 tab PRN Reason: Pain Continue Simvastatin 40 mg PO QAM Ibuprofen [Advil] 200 - 400 mg PO Q6H PRN PRN Reason: Pain Discharge Medication List Ibuprofen [Advil] 200 - 400 mg PO Q6H PRN 01/28/21 [History] Simvastatin 40 mg PO QAM 01/28/21 [History] Acetaminophen Tab [Tylenol] 650 mg PO Q4HR PRN tab 03/02/21 [Rx] HYDROcodone/APAP 5-325MG [[place] 5-325] 1 tab PO Q6HR PRN 3 Days #10 tab 03/02/21 [Rx] Follow up Appointment(s)/Referral(s): Colby Galvez MD [Medical Doctor] - 03/10/21 10:20 am Roberto Linares DO [Primary Care Provider] - 1 Week (Office will calll with appointment time) Patient Instructions/Handouts: How to Use an Incentive Spirometer (DC), Bowel Resection (DC) Activity/Diet/Wound Care/Special Instructions: No driving while taking [place] No lifting over 10 pounds You may shower. No soaking or tub baths for 2 weeks Very light activity until you are reevaluated at your follow up appointment with your surgeon Do not take [place] and Tylenol at the same time. Patient can have up to 2 g of Tylenol within a 24-hour period. Discharge Disposition: HOME SELF-CARE <Colby Galvez - Last Filed: 03/02/21 16:19> Providers Date of admission: 02/26/21 12:06 Attending physician: Colby Galvez Consults: 02/26/21 15:59 Consult Physician Routine Consulting Provider: Dheeraj Wright Consult Reason/Comments: med mgmt Do you want consulting provider notified?: Yes Primary care physician: Roberto Linares - Discharge Diagnosis(es) (1) Cancer of sigmoid colon Status: Acute Hospital Course: As above. Patient doing well today. Tolerating solid foods. No nausea or vomiting. Last bowel movement 2 days ago. Passing flatus. He is anxious to go home. White blood cell count normal. Platelet levels improved. October discharge. Follow-up one week.
[2021-03-02 14:14] VITALS: BP 148/79; PULSE 53; RESP 16; TEMP 98
[2021-03-02 15:28] LABS: African American GFR (CKD) 99.9 (60.0-200.0); Albumin/Globulin Ratio 2.11 (1.60-3.17); Anion Gap 9.6 mmol/L (4.00-12.00); BUN/Creat Ratio 7.5 Ratio (12.00-20.00); Calcium 8.7 mg/dL (8.7-10.3); Carbon Dioxide 22.4 mmol/L (21.6-31.8); Globulin 1.9 g/dL (1.6-3.3); Non-African American GFR(CKD) 86.2 (60.0-200.0); Total Bilirubin 1.3 mg/dL (0.3-1.2); Total Protein 5.9 g/dL (6.2-8.2)
== END 2021-03-02 16:08 | disposition home or self-care (01) | DRG 331 ==
LOC: 2ORMAIN 12:06 → 4SSUR 15:51
PROVIDERS: ADMIT Surgery; ATTEND Surgery
PROC: 0DTN0ZZ Resection of Sigmoid Colon, Open Approach (ICD-10-PCS; principal; 2021-02-26 12:40)
DX: C18.7 Malignant neoplasm of sigmoid colon (principal); D64.9 Anemia, unspecified; D69.6 Thrombocytopenia, unspecified; E16.2 Hypoglycemia, unspecified; E78.5 Hyperlipidemia, unspecified; F41.9 Anxiety disorder, unspecified; N40.0 Benign prostatic hyperplasia without lower urinary tract symptoms; Z80.0 Family history of malignant neoplasm of digestive organs; Z82.49 Family history of ischemic heart disease and other diseases of the circulatory system; Z85.038 Personal history of other malignant neoplasm of large intestine; Z87.891 Personal history of nicotine dependence; B35.9 Dermatophytosis, unspecified; Z20.822 Contact with and (suspected) exposure to COVID-19
CPT/HCPCS: 80048; 80053; 85025; 85027; 86850; 86900; 86901; 87635; 94760

== ENCOUNTER 2021-04-15 11:05 | Day surgery (SDC) | payer MEDICARE, OTHER ==
[2021-04-13 10:11] VITALS: BMI 25.4
[~2021-04-15 11:05] MED LIST changes: -ALVIMOPAN 12 MG CAPSULE PO PRN; +LACTATED RINGERS 1,000 ML IV SCH; -LIDOCAINE 1% (10MG/ML) FOR IV START INTRADERMA PRN; +Pre Op ABX Message 1 EACH MISC MISCELLANE ONE; -fentaNYL (PF) 50 MCG/ML 2 ML AMP IVP PRN; -metroNIDAZOLE-NS PMX 500 MG in SALINE 1 100ML.BAG IVPB PRN
[2021-04-15] MEDS ORDERED: GLYCOPYRROLATE 0.2 MG/ML 2 ML VIAL ONE (12:36)
[2021-04-15] MEDS ORDERED: PROPOFOL 10 MG/ML 20 ML VIAL IV ONE (12:36)
[2021-04-15] MEDS ORDERED: fentaNYL (PF) 50 MCG/ML 2 ML AMP ONE (12:36)
[2021-04-15] MEDS ORDERED: MIDAZOLAM 2 MG/2 ML VIAL ONE (12:36)
[2021-04-15] MEDS ORDERED: LIDOCAINE 1% INJ 10MG/ML (20 ML MDV) ONE (12:36)
[2021-04-15] MEDS ORDERED: PHENYLEPHRINE-0.9% NACL SYG 1,000 MCG/10 ML SYRINGE ONE (12:36)
[2021-04-15] MEDS ORDERED: SODIUM CHLORIDE 0.9% 100 ML with ceFAZolin 2,000 MG IV ONE ×2 (12:50)
[2021-04-15] MEDS ORDERED: LIDOCAINE (PF) 10 MG/ML 2 ML VIAL SQ ONE ×2 (12:55)
[2021-04-15] MEDS ORDERED: HEPARIN SODIUM,PORCINE 100 UNIT/ML 5 ML VIAL IV ONE ×2 (12:59→13:06)
[2021-04-15] MEDS ORDERED: NALOXONE 0.4 MG/ML 1 ML VIAL IV PRN (13:18)
--- NOTE | 2021-04-15 13:20 | P.OP ---
Date of Procedure: 04/15/21 Procedure(s) Performed: PREOPERATIVE DIAGNOSIS: Colon cancer POSTOPERATIVE DIAGNOSIS: Same PROCEDURE: Port-A-Cath placement with fluoroscopic and ultrasound guidance SURGEON: Leonor EBL: Minimal ANESTHESIA: Sedation COMPLICATIONS: None OPERATIVE PROCEDURE: Patient was brought and placed on the operative table in the supine position. The patient was sedated per anesthesia that time. The chest and neck were prepped and draped in usual sterile fashion. The ultrasound probe was used to identify the location of the right internal jugular vein. The skin was localized with lidocaine. The Seldinger needle was advanced into the IJ under ultrasound guidance. The wire was advanced through the needle under fluoroscopic guidance into the superior vena cava. A port pocket was created in the right infraclavicular location. The catheter was tunneled from the wire entrance site to the port pocket. The port was then connected to the catheter. The dilator introducer was threaded over the guidewire. The guidewire and dilator were then removed. The catheter was advanced through the introducer and introducer was then removed. The tip was seen to be in the right atrial junction via fluoroscopy. A picture of the radiograph showing the tip at the radial digital junction was taken. Port was flushed with both saline and a Hep- Lock solution. There was good flow both in and out of the port. The port was sutured in underlying tissues using 3-0 silk sutures. The subcutaneous tissues were reapproximated using 3-0 Vicryl sutures and the skin at both locations using 4-0 Monocryl sutures. Skin glue and sterile dressings then applied. DISPOSITION: Stable to recovery room
[2021-04-15 13:27] VITALS: TEMP 96.8
[2021-04-15 13:35] VITALS: RESP 16
--- NOTE | 2021-04-15 15:13 | XR ---
EXAMINATION TYPE: XR chest 1V portable DATE OF EXAM: 04/15/2021 Comparison: None Clinical History: 75-year-old male POST ANJELICA-CATH PLACEMENT Findings: Right anterior chest wall injection port with catheter tip at the cavoatrial junction. Heart upper li mits of normal in size. Mild elongation thoracic aorta. Mild hyperinflation. No consolidation or pleu ral effusion. No pneumothorax. Impression: Right anterior chest wall injection port. Catheter tip at the cavoatrial junction. Borderline heart s ize. Possible underlying COPD. No acute process seen.
[2021-04-15 15:20] VITALS: BP 146/89; PULSE 46
--- NOTE | 2021-04-15 15:55 | FL ---
EXAMINATION TYPE: FL guided central line placemt DATE OF EXAM: 04/15/2021 CLINICAL HISTORY: Port-A-Cath insertion TECHNIQUE: Fluoroscopy. COMPARISON: None. FINDINGS: Fluoroscopic guidance was provided during Port-A-Cath insertion procedure performed by Dr. Galvez. A total of 3 seconds of fluoroscopic time was utilized during the procedure and 1 spot image s was acquired. Intraoperative image shows right internal jugular Mediport catheter terminating at ex pected level of the cavoatrial junction. IMPRESSION: As Above.
== END 2021-04-15 15:23 | disposition home or self-care (01) ==
LOC: OR 11:05
PROVIDERS: ATTEND Surgery
DX: Z45.2 Encounter for adjustment and management of vascular access device (principal); C18.9 Malignant neoplasm of colon, unspecified
CPT/HCPCS: 36561; 77001; 71045; C1788; J2250; J2001 ×2; J1642; J1100; J2405; J0690; J3010; J2370; J2704; J1644

== ENCOUNTER → 2022-04-28 | Outpatient (CLI) | payer MEDICARE, OTHER ==
[2022-04-28 15:19] LABS: African American GFR (CKD) >90 (>60 ml/min/1.73 sqM); Blood Urea Nitrogen 15 mg/dL (9-20); Non-African American GFR(CKD) 83 (>60 ml/min/1.73 sqM)
--- NOTE | 2022-04-28 17:12 | CT ---
EXAMINATION TYPE: CT abdomen pelvis w con DATE OF EXAM: 04/28/2022 COMPARISON: Most recent CT October 20, 2021 and older studies HISTORY: h/o colon CA, f/u CT DLP: 924.5 mGycm, Automated Exposure Control for Dose Reduction was Utilized. CONTRAST: CT scan of the abdomen and pelvis is performed with oral and with IV Contrast, patient injected with 100 mL of Isovue 300. FINDINGS: LUNG BASES: No significant abnormality is appreciated. LIVER/GB: Punctate dependent calculus redemonstrated in the gallbladder. PANCREAS: No significant abnormality is seen. SPLEEN: No significant abnormality is seen. ADRENALS: No significant abnormality is seen. KIDNEYS: A few simple appearing small thin-walled cysts throughout the bilateral kidneys are redemons trated. Stable 2 mm nonobstructing calculus right kidney axial image 32 lower pole level. BOWEL: Current study oral contrast does not reach level of terminal ileum making evaluation of distal bowel slightly suboptimal. Sutures in the sigmoid colon axial image 72 are redemonstrated. Scattered colonic diverticula greatest in number in the left and sigmoid colon redemonstrated. No CT evidence for acute diverticulitis. No suspicious small or large bowel dilatation. PROSTATE/SEMINAL VESICLES: Enlarged prostate consistent with BPH redemonstrated. LYMPH NODES: No new greater than 1cm abdominal or pelvic lymph nodes are appreciated. Possible prior 10 mm peritoneal nodule appears to be less prominent and contiguous with the adjacent bowel on curre nt study seen axial image 61. OSSEOUS STRUCTURES: Bridging osteophytes in the thoracic spine are redemonstrated. There is loss of n ormal lumbar lordosis. There is grade 1 retrolisthesis L3 on L4 with moderate disc space narrowing. S ome narrowing at the bilateral sacroiliac joints is redemonstrated. Facet arthropathy lower lumbar le vels is seen. OTHER: Slight swirling of mesenteric vessels axial images 32 through 35 is redemonstrated. Mild calci fied plaque of the aorta extends into branch vessels. IMPRESSION: No obvious new or enlarging mass or adenopathy to suggest neoplastic recurrence.
== END | disposition home or self-care (01) ==
LOC: RADCTMAIN 14:44
PROVIDERS: ATTEND Internal Medicine Hematology & Oncology
DX: C18.7 Malignant neoplasm of sigmoid colon (principal)
CPT/HCPCS: 82565; 84520; 74177; 36415; Q9967

== ENCOUNTER → 2023-06-01 | Outpatient (CLI) | payer MEDICARE, OTHER ==
[2023-06-01 14:44] LABS: African American GFR (CKD) >90 (>60 ml/min/1.73 sqM); Blood Urea Nitrogen 20 mg/dL (9-20); Non-African American GFR(CKD) 86 (>60 ml/min/1.73 sqM)
--- NOTE | 2023-06-01 16:06 | CT ---
EXAMINATION: CT ABDOMEN AND PELVIS WITH IV CONTRAST DATE OF EXAMINATION: 06/01/2023. COMPARISON: 04/28/2022.. INDICATION: Colon cancer follow-up. PROCEDURE: Axial CT of the abdomen and pelvis was performed with contrast and sagittal and coronal reformatted images were performed. CT dose lowering techniques were used, to include: automated expos ure control, adjustment for patient size, and/or use of iterative reconstruction. 100 mL of Isovue-30 0 was given intravenously. FINDINGS: LOWER CHEST : The visualized lung bases are clear. There are no pleural or pericardial effusions. ABDOMEN: Liver and Biliary system: Normal. Adrenal glands: Normal. Kidneys and ureters: Unchanged right renal cyst. The kidneys and ureters otherwise appear unremarkabl e. Spleen: Normal. Pancreas: Normal. Gallbladder: Small gallstone is seen within the gallbladder which is unchanged. Lymph nodes, Peritoneum and mesentery: There is no mesenteric or retroperitoneal lymphadenopathy. Gastrointestinal tract: There are no dilated loops of bowel or free intraperitoneal air. Spaces n ormal. There is a sigmoid colonic anastomosis. There is moderate descending colonic and sigmoid colon ic diverticulosis without evidence of diverticulitis. Aorta/IVC: There is mild vascular calcification throughout the abdominal aorta without evidence of aneurysmal dilation or dissection. IVC normal. Abdominal wall: Normal. PELVIS: Fluid: There is no free fluid in the pelvis. Lymph Nodes: There is no pelvic or inguinal lymphadenopathy.. Urinary bladder: Normal. BONES: There are no osseous destructive lesions.. ADDITIONAL SIGNIFICANT FINDINGS: None. IMPRESSION: 1. Postsurgical changes of prior partial colectomy and anastomosis with no definitive residual, recur rent or metastatic disease in the abdomen or pelvis. 2. Diverticulosis without evidence of diverticulitis. 3. Prostamegaly.
== END | disposition home or self-care (01) ==
LOC: RADCTMAIN 13:56
PROVIDERS: ATTEND Internal Medicine Hematology & Oncology
DX: C18.7 Malignant neoplasm of sigmoid colon (principal); K57.30 Diverticulosis of large intestine without perforation or abscess without bleeding; N40.0 Benign prostatic hyperplasia without lower urinary tract symptoms; Z98.890 Other specified postprocedural states
CPT/HCPCS: 82565; 84520; 74177; 36415; Q9967

== ENCOUNTER → 2024-06-03 | Outpatient (CLI) | payer MEDICARE, OTHER ==
[2024-06-03 14:14] LABS: African American GFR (CKD) >90 (>60 ml/min/1.73 sqM); Blood Urea Nitrogen 18 mg/dL (9-20); Non-African American GFR(CKD) 83 (>60 ml/min/1.73 sqM)
--- NOTE | 2024-06-05 14:29 | CT ---
EXAMINATION TYPE: CT ChestAbdPelvis w con DATE OF EXAM: 06/03/2024 3:59 PM COMPARISON: 06/01/2023, 04/28/2022 CLINICAL INDICATION: Male, 78 years old with history of C18.7 COLON CANCER, Colon CA. Technique: CT ChestAbdPelvis w con; Multiple axial images were obtained. Two-dimensional coronal and sagittal reconstructions were obtained. Contrast used:100 ml mL of Isovue 300 with IV Contrast, (None if empty) Oral contrast used: with Oral Contrast CT DLP: 1497.6 mGycm, Automated exposure control for dose reduction was used. Findings: CHEST: LUNGS/ PLEURA: No focal consolidation, pneumothorax or pleural effusion. AIRWAY: Patent and unremarkable. HEART: Size within normal limits. MEDIASTINUM: No gross evidence of adenopathy. Small hiatal hernia present. Oral contrast seen through the esophagus. VASCULATURE: No aortic aneurysm. MUSCULOSKELETAL: Mild disc degeneration changes are present throughout the thoracolumbar spine. Bridg ing osteophytes throughout the thoracic spine anterior longitudinal ligament. SOFT TISSUES/LYMPH NODES: Unremarkable. LOWER NECK: No significant findings. ABDOMEN: ABDOMEN LIVER: Diffusely hypoattenuating parenchyma. GALLBLADDER AND BILE DUCTS: Layering increased densities within the lumen consistent with gallstones are present. PANCREAS: Unremarkable. SPLEEN: Unremarkable. ADRENAL GLANDS: Unremarkable. KIDNEYS AND URETERS: Right renal nonobstructing calculus measuring 3 mm. No evidence of hydronephrosi s. The ureters are unremarkable. No left renal calculi. Simple appearing bilateral renal cysts. PELVIS BLADDER: Unremarkable REPRODUCTIVE: Prostate is enlarged in size measuring 6.6 cm in transverse dimension. ABDOMEN & PELVIS STOMACH AND BOWEL: No evidence of bowel obstruction. The appendix is normal. Post surgical changes si gmoid colon No evidence for wall thickening or mass. PERITONEUM/RETROPERITONEUM: No evidence of pneumoperitoneum or free fluid. VASCULATURE: No evidence of aortic aneurysm. MUSCULOSKELETAL: No acute osseous abnormalities. Mild disc degeneration changes are present throughou t the thoracolumbar spine. Findings worse at the adjoining endplates of L3-L4 with more pronounced di sc space narrowing osteophytes. LYMPH NODES: No gross evidence for lymphadenopathy. SOFT TISSUE/ABDOMINAL WALL: Unremarkable IMPRESSION: 1. Postsurgical changes to the sigmoid colon. No evidence for enlarging mass or lymphadenopathy. 2. Prostatomegaly, correlate with serum PSA. 3. Hepatic steatosis. 4. Cholelithiasis. 5. Colonic diverticulosis. 6. Diffuse idiopathic skeletal hyperostosis. 7. Esophageal oral contrast only for esophageal dysmotility versus gastroesophageal reflux. 8. Small hiatal hernia. [facility], , 06/05/2024 2:26 PM
== END | disposition home or self-care (01) ==
LOC: RADCTMAIN 13:35
PROVIDERS: ATTEND Internal Medicine Hematology & Oncology
DX: C18.7 Malignant neoplasm of sigmoid colon (principal); G99.0 Autonomic neuropathy in diseases classified elsewhere; E78.5 Hyperlipidemia, unspecified; Z71.3 Dietary counseling and surveillance; N40.0 Benign prostatic hyperplasia without lower urinary tract symptoms; K76.0 Fatty (change of) liver, not elsewhere classified; K80.20 Calculus of gallbladder without cholecystitis without obstruction; K57.30 Diverticulosis of large intestine without perforation or abscess without bleeding; M48.10 Ankylosing hyperostosis [Forestier], site unspecified; K44.9 Diaphragmatic hernia without obstruction or gangrene
CPT/HCPCS: 82565; 84520; 71260; 74177; 36415; Q9967